=== PATIENT | female | born 1955 | race Two or more races ===

== ENCOUNTER 2025-05-18 15:24 | Emergency (ER) | payer OTHER ==
[~2025-05-18] VITALS: Ht 162.6 cm; Wt 54.4 kg
[2025-05-18 15:32] VITALS: TEMP 98.4
[2025-05-18 16:29] LABS: PLATELET COUNT (AUTO) 331 K/uL (150-450); RED BLOOD CELL COUNT(AUTO) 4.77 MIL/uL (4.0-5.2); RED CELL DISTRIBUTION WIDTH 13.8 % (11.5-15.0); WHITE BLOOD COUNT (AUTO) 6.9 K/uL (4.3-11.0)
[2025-05-18 16:32] LABS: CALCIUM, SERUM 9.7 mg/dL (8.5-10.1); CREATININE 0.8 mg/dL (0.6-1.3); SODIUM SERUM 137 mmol/L (136-145); UREA NITROGEN, BLOOD 19 mg/dL (7-18)
[2025-05-18 17:10] VITALS: BP 118/64
[2025-05-18] MEDS ORDERED: oxyCODONE/APAP (5/325 MG) 1 UDTAB TABLET ONE (17:17)
[2025-05-18] MEDS: oxyCODONE/APAP (5/325 MG) 1 UDTAB TABLET PO ONE (17:20)
[2025-05-18 18:10] VITALS: O2SAT 99
== END 2025-05-18 18:10 | disposition home or self-care (01) ==
LOC: ER 15:36
DX: R07.81 Pleurodynia (principal); M25.552 Pain in left hip; M25.562 Pain in left knee; R07.89 Other chest pain; I10 Essential (primary) hypertension; M81.0 Age-related osteoporosis without current pathological fracture; Z88.5 Allergy status to narcotic agent; Z88.2 Allergy status to sulfonamides; W18.39XA Other fall on same level, initial encounter; Y93.K1 Activity, walking an animal; Y92.89 Other specified places as the place of occurrence of the external cause; Y99.8 Other external cause status
CPT/HCPCS: 36415; 71100-TC; 73502; 73564-TC; 80048-TC; 84484-TC; 85025-TC